=== PATIENT | female | born 1965 | race Two or more races ===

== ENCOUNTER 2023-01-19 22:58 | Emergency (ER) | payer MEDICAID, OTHER ==
[~2023-01-19] VITALS: Ht 172.7 cm; Wt 110.0 kg
[2023-01-19 22:58] VITALS: BP 131/86; RESP 18; O2SAT 95
[2023-01-19 23:32] VITALS: PULSE 64
== END 2023-01-20 03:27 | disposition left against medical advice (07) ==
LOC: EDBD 22:58 → ER 23:01
DX: M54.9 Dorsalgia, unspecified (principal); R94.31 Abnormal electrocardiogram [ECG] [EKG]; Z53.21 Procedure and treatment not carried out due to patient leaving prior to being seen by health care provider
CPT/HCPCS: 93005

== ENCOUNTER 2024-07-17 06:54 | Inpatient (IN) | payer MEDICAID ==
[2024-07-15 12:28] LABS: Basophils # (auto) 0 10 ^3/uL (0-0.2); Basophils % (auto) 0.7 % (0.0-2.0); Eosinophils # (auto) 0.2 10 ^3/uL (0-0.8); Eosinophils % (auto) 2.6 % (0.0-7.0); Hematocrit 42.1 % (36.0-46.0); Hemoglobin 13.9 g/dL (12.2-16.2); Lymphocytes # (auto) 3.2 10 ^3/uL (0.4-5.4); Mean Corpuscular Hemoglobin 29.6 pg (28.0-32.0); Mean Corpuscular Hgb Conc. 33.1 g/dL (32.0-36.0); Mean Corpuscular Volume 89.6 fL (80.0-100.0); Monocytes # (auto) 0.9 10 ^3/uL (0-1.3); Monocytes % (auto) 15.5 % (0.0-12.0); Neutrophils # (auto) 1.7 10 ^3/uL (1.6-8.6); Neutrophils % (auto) 28.2 % (37.0-80.0); Nucleated Red Blood Cells % 0.3 %; Platelet Count (auto) 295 10^3/uL (140-450); Red Blood Cells 4.69 10^6/uL (4.0-5.20); Red Cell Distribution Width 12.8 % (11.8-14.3); White Blood Cell 6.1 10^3/uL (4.4-10.8)
[2024-07-15 12:45] LABS: Alanine Aminotransferase 22 U/L (7-40); Albumin 4.7 g/dL (3.2-4.8); Alkaline Phosphatase 77 U/L (46-116); Anion Gap 12 (5-15); Aspartate Aminotransferase 20 U/L (13-40); BUN/Creatinine Ratio 10.7 (10.0-20.0); Bilirubin, Total 0.5 mg/dL (0.2-1.0); Blood Urea Nitrogen 19 mg/dL (9-23); Calcium 10.3 mg/dL (8.7-10.4); Carbon Dioxide 26 mmol/L (20-31); Chloride 101 mmol/L (98-107); Glucose 89 mg/dL (74-106); Sodium 139 mmol/L (136-145); Total Protein 7.6 g/dL (5.7-8.2)
[2024-07-15 12:47] LABS: INR 1.05 (0.9-1.15); Prothrombin Time 11.1 sec (9.3-11.8)
[2024-07-15 12:54] LABS: Potassium 3.4 mmol/L (3.5-5.1)
[~2024-07-17] VITALS: Ht 157.5 cm; Wt 109.6 kg
[~2024-07-17 06:54] MED LIST: AML5T PO; DULO60CA41 PO; GABA-1250 PO; HYDR-4798 PO; HYDR25TA4 PO; MELO7.5T7 PO; TIRZ7.5I2 SC
[2024-07-17] MEDS ORDERED: ceFAZolin 2 GM/D5W100ml 100 ML IV ONE (07:10)
--- NOTE | 2024-07-17 08:52 | DVH ---
CLINICAL INFORMATION: 59 years old, Female; preop. TECHNIQUE: Single AP portable chest radiograph was obtained. COMPARISON: None FINDINGS: Lungs: Mild atelectasis in the lung bases. No focal consolidation. Cardiac: Heart size is within normal limits. Pulmonary vasculature: Unremarkable. Mediastinum/chepe: Unremarkable. Bones: No acute osseous abnormality identified. Other: No other significant findings. IMPRESSION: No evidence of acute disease in the chest.
--- NOTE | 2024-07-17 09:06 | DVHINCON2 ---
JEFFY MARTIN [facility] 07/17/24 0906: Date Seen: Jul 17, 2024 Referring Physician MD Judy Reason for Consultation Cardiac risk stratification History of Present Illness This is a 59-year-old female patient who presents to the preoperative area for pending right Achilles detach and reattach with bone spur removal. Cardiology has been consulted at this point for cardiac risk stratification. Previous twelve lead electrocardiogram done on 07/15/24 reveals normal sinus rhythm with nonspecific ST depression to anterolateral leads. The patient denies any chest pain, shortness of breath, palpitations or other cardiac symptoms at time of assessment. Significant past medical history includes hypertension, plantar fasciitis, chronic back pain, previous tobacco use, and obesity. Past Medical History Past medical history reviewed. No other significant than mentioned above. Past Surgical History Tubal ligation Back surgery Family History Family history reviewed. Social History Patient has a five pack-year history, quit smoking approximately 17 years ago Patient denies any illicit drug use Patient denies any alcohol use Allergies: Coded Allergies: NO KNOWN ALLERGIES (Unverified , 07/15/24) Home Meds Reported Medications Tirzepatide (Zepbound) 7.5 Mg/0.5 Ml Inj, 7.5 MG SC, INJ 07/15/24 Amlodipine Besylate (NORVASC TABLET) 5 Mg Tb, 2.5 MG PO, TAB 07/15/24 Hydrochlorothiazide (Hydrochlorothiazide) 25 Mg Tab, 25 MG PO DAILY for 30 Days, MG 07/15/24 Duloxetine Hcl (Cymbalta) 60 Mg Cap, 1 CAP PO DAILY, #90 CAP 3 Refills 07/15/24 Hydrocodone-Acetaminophen (Hydrocodone Bitartrate/AC 10-325 mg) Unknown Strength Tab, PO, TAB 07/15/24 Gabapentin (Gabapentin) 300 Mg Cap, 300 MG PO PRN for 30 Days, MG 07/15/24 Meloxicam (Meloxicam) Unknown Strength Tab, PO DAILY, #30 TAB 2 Refills 07/15/24 Home Meds Home medications reviewed. Review of Systems Constitutional: No symptom reported Ears, Nose, & Throat: No symptom reported Eyes: No symptom reported Neurological: No symptoms reported Pulmonary/Respiratory: No symptoms reported Cardiovascular: No symptom reported Gastrointestinal: No symptom reported Genitourinary: No symptom reported Musculoskeletal: Right foot pain Skin: No symptom reported Psychiatric: No symptom reported Endocrine: No symptom reported Hematologic/Lymphatic: No symptom reported Vital Signs Vital Signs Date Time Temp Pulse Resp B/P (MAP) Pulse Ox O2 Delivery O2 Flow Rate FiO2 07/17/24 07:09 97.6 84 18 130/85 (100) 98 97.6 Physical Exam General Appearance: Cooperative. Obese Pulmonary/Respiratory: Clear, bilateral breaths sounds. Cardiovascular/Chest: Regular rate and rhythm. Peripheral Pulses: 2+ Radial (R). 2+ Radial (L). 2+ Pedal (R). 2+ Pedal (L) Abdominal Exam: Normal bowel sounds. Ankle Exam: Negative ankle edema Lower extremities: Negative lower extremity edema Neuro/Mental Status: A/OX4, coherent. Thoughts/Psych: Normal thought pattern. Appropriate mood and affect. Good judgme nt and insight. Appearance: No acute distress. Skin Exam: Normal inspection. Normal color. Warm and dry. Labs/Diagnostic Data Labs Test 07/15/24 11:57 Range/Units White Blood Count 6.1 4.4-10.8 10^3/uL Red Blood Count 4.69 4.0-5.20 10^6/uL Hemoglobin 13.9 12.2-16.2 g/dL Hematocrit 42.1 36.0-46.0 % Mean Corpuscular Volume 89.6 80.0-100.0 fL Mean Corpuscular Hemoglobin 29.6 28.0-32.0 pg Mean Corpuscular Hemoglobin Concent 33.1 32.0-36.0 g/dL Red Cell Distribution Width 12.8 11.8-14.3 % Platelet Count 295 140-450 10^3/uL Mean Platelet Volume 7.4 6.9-10.8 fL Neutrophils (%) (Auto) 28.2 L 37.0-80.0 % Lymphocytes (%) (Auto) 53.0 H 10.0-50.0 % Monocytes (%) (Auto) 15.5 H 0.0-12.0 % Eosinophils (%) (Auto) 2.6 0.0-7.0 % Basophils (%) (Auto) 0.7 0.0-2.0 % Neutrophils # (Auto) 1.7 1.6-8.6 10 ^3/uL Lymphocytes # (Auto) 3.2 0.4-5.4 10 ^3/uL Monocytes # (Auto) 0.9 0-1.3 10 ^3/uL Eosinophils # (Auto) 0.2 0-0.8 10 ^3/uL Basophils # (Auto) 0 0-0.2 10 ^3/uL Nucleated Red Blood Cells 0.3 % Prothrombin Time 11.1 9.3-11.8 sec Prothrombin Time INR 1.05 0.9-1.15 Activated Partial Thromboplast Time 27.0 24.5-34.5 SEC Sodium Level 139 136-145 mmol/L Potassium Level 3.4 L 3.5-5.1 mmol/L Chloride Level 101 98-107 mmol/L Carbon Dioxide Level 26 20-31 mmol/L Anion Gap 12 5-15 Blood Urea Nitrogen 19 9-23 mg/dL Creatinine 1.77 H 0.550-1.02 mg/dL Glomerular Filtration Rate Calc 33 >90 mL/min BUN/Creatinine Ratio 10.7 10.0-20.0 Serum Glucose 89 74-106 mg/dL Calcium Level 10.3 8.7-10.4 mg/dL Total Bilirubin 0.5 0.2-1.0 mg/dL Aspartate Amino Transferase (AST) 20 13-40 U/L Alanine Aminotransferase (ALT) 22 7-40 U/L Alkaline Phosphatase 77 46-116 U/L Total Protein 7.6 5.7-8.2 g/dL Albumin 4.7 3.2-4.8 g/dL Assessment Preprocedural cardiovascular examination Hypertension History of tobacco use Obesity Plan/Recommendation We will continue with the following plan/recommendations (Dr. Worrell): Case reviewed and discussed with . Cardiolite stress test images reviewed by . Transthoracic echocardiogram reveals EF 65%. Revised cardiac risk index (Britton criteria): 0 points (3.9% risk of major cardiac event). Chest x-ray reveals no evidence of acute disease in the chest. The patient underwent a Cardiolite stress test in which results were negative for ischemia. Cardiac symptoms have been ruled out. There is no underlying history of congestive heart failure, coronary artery disease, or equivalent of cardiac symptoms. The patient reports a good functional capacity. Per Cardiology standpoint, the patient is at an acceptable risk for moderate risk surgery. There is no additional cardiac workup indicated prior to surgery. Thank you for allowing us to care for this patient. Please call with any questions or concerns. Critical care time spent: 40 minutes This medical document was created using an electronic medical record system with voice recognition software and computerized dictation system. Although this document has been carefully reviewed, there might still be some phonetic and typographical errors. Occasional wrong-word or ``sound-alike substitutions may have occurred due to the inherent limitations of voice recognition software. These areas are purely typographical due to imperfections of the software programs and do not reflect any compromise in the patient's medical care. Please read the chart carefully and recognize, using context, where these substitutions have occurred. Plan discussed with: Patient NYHA Physical activity limitations: NA Date of Service: Jul 17, 2024 Billing Provider: JEFFY MARTIN Cardiology Common Codes: 65024-[id number] INP/OBS CARE (High) Cardiology Consultation Codes: 07530-[id number] CONSULT <45MIN MARY WORRELL MD 07/17/24 1548: Allergies: Coded Allergies: NO KNOWN ALLERGIES (Unverified , 07/15/24) Home Meds Reported Medications Tirzepatide (Zepbound) 7.5 Mg/0.5 Ml Inj, 7.5 MG SC, INJ 07/15/24 Amlodipine Besylate (NORVASC TABLET) 5 Mg Tb, 2.5 MG PO, TAB 07/15/24 Hydrochlorothiazide (Hydrochlorothiazide) 25 Mg Tab, 25 MG PO DAILY for 30 Days, MG 07/15/24 Duloxetine Hcl (Cymbalta) 60 Mg Cap, 1 CAP PO DAILY, #90 CAP 3 Refills 07/15/24 Hydrocodone-Acetaminophen (Hydrocodone Bitartrate/AC 10-325 mg) Unknown Strength Tab, PO, TAB 07/15/24 Gabapentin (Gabapentin) 300 Mg Cap, 300 MG PO PRN for 30 Days, MG 07/15/24 Meloxicam (Meloxicam) Unknown Strength Tab, PO DAILY, #30 TAB 2 Refills 07/15/24 Plan/Recommendation pt not seen, she was at stress labs pt was admitted for elective foot surgery echo is normal stress mpi shows eneida lvef 70%, normal perfusion pt acceptable intermediate risk for surgery ok to proceed Plan discussed with: Patient JEFFY MARTIN Jul 17, 2024 09:06 MARY WORRELL MD Jul 17, 2024 15:48
[2024-07-17] MEDS ORDERED: MORPHINE SULFATE INJ 2 MG/ml SYRG IV PRN (09:45)
[2024-07-17] MEDS ORDERED: NITROGLYCERIN 0.4 MG SL TAB SL PRN (09:45)
--- NOTE | 2024-07-17 10:07 | ECG ---
[facility] Test Date: 2024-07-17 Test Time: 08:32:37 Pat Name: WILL HARGROVE Department: Room: 0245T Gender: F [employer] Buyer: MARC : 1965 Requested By: JEFFY MARTIN Order Number: [id number] Reading MD: uHgo Paige Measurements Intervals [place] Rate: 62 P: 27 IN: 132 QRS: 4 QRSD: 86 T: 13 QT: 410 QTc: 416 Interpretive Statements Normal sinus rhythm Minimal voltage criteria for LVH, may be normal variant Nonspecific T wave abnormality Electronically Signed On 07-18-2024 21:09:05 PST by Hugo Paige Please click the below link to view image of tracing.
--- NOTE | 2024-07-17 10:07 | ECG ---
[facility] Test Date: 2024-07-17 Test Time: 08:33:12 Pat Name: WILL HARGROVE Department: Room: 0245T Gender: F [place] [employer] Operator: MARC : 1965 Requested By: RK SHORE Order Number: [id number] Reading MD: Hugo Paige Measurements Intervals [place] Rate: 63 P: 34 NE: 124 QRS: 3 QRSD: 80 T: 14 QT: 414 QTc: 423 Interpretive Statements Normal sinus rhythm Minimal voltage criteria for LVH, may be normal variant Nonspecific T wave abnormality Electronically Signed On 07-18-2024 21:09:43 PST by Hugo Paige Please click the below link to view image of tracing.
[2024-07-17] MEDS ORDERED: REGADENOSON 0.4 MG/5 ML SYRG IV ONE (10:50)
[2024-07-17] MEDS: REGADENOSON 0.4 MG/5 ML SYRG IV ONE (11:06)
--- NOTE | 2024-07-17 11:37 | DVHSR ---
APPROVED REPORT EXAM: Two-dimensional and M-mode echocardiogram with Doppler and color Doppler. RISK FACTORS Height: 5'2", Weight: 209 DIMENSIONS LVDd4.0 (3.8-5.7cm)LA (2D)4.4 (1.9-4.0cm)Aortic Root2.7 (2.0-3.7cm) LVDs2.5 (2.5-4.0cm)LA (MM) (1.9-4.0cm)Aortic Cusp Exc1.8 (1.5-2.0cm) EF (%) 69.0 (55-70%)Rt. Atrium3.9 (1.9-4.0cm)Asc. Aorta3.2 cm IVSd0.9 (0.7-1.1cm)RV (D)3.0 (1.8-2.4cm) PWd0.7 (0.7-1.1cm) Mitral Valve MitralMitral Stenosis E wave0.69m/sMV Mean GR.mmHg A wave0.71m/sMV Peak GR.mmHg E/A ratio1.02D MVAcm2 DECEL [id number] 1/2 Timems Aortic Valve Aortic ValveAortic Stenosis V11.23m/Ofelia Mean GR.4mmHg V21.45m/Ofelia Peak GR.8mmHg LVOT Diameter1.8 (1.8-2.4cm)Doppler AVA2.16cm2 Pulmonic Valve V20.63m/s Tricuspid Valve TR Velocity2.57m/s [id number] Other Information Quality : Technically LimitedRhythm : Technically limited study due to body habitus. Conclusion lvef 65% by visual estimate normal rv function mild enlargement enlarged left l atria no severe valve abnormalities noted trivial to small posterior pericardail effusion, no HD compromise
--- NOTE | 2024-07-17 11:42 | DVHHP2 ---
History of Present Illness Reason for Visit: Scheduled surgery History of Present Illness Carla Rasmussen is a 59-year-old female with past medical history of hypertension, obesity, bilateral plantar fasciitis, and chronic back pain, who came to the hospital for a scheduled surgery. Patient is scheduled with Dr. Kim for a Achilles detached and reattached with bone spur removal surgery today. On assessment by anesthesia they are requesting a cardiology clearance due to abnormal EKG. Patient will be admitted and worked up by cardiology prior to surgery. Patient denies any chest pain, palpitations, shortness of breath, dizziness, or syncopal episodes. Cardiovascular: HTN Musculoskeletal: Chronic low back pain Rheumatologic: Other (bilateral plantar fasciitis) Past Surgical History: Other (back surgery), Tubal Ligation Smoke: No ALCOHOL: none Drugs: None Lives: with Family Domestic Violence: Neg Review of Systems Constitutional: No: Fever, Chills, Sweats, Weakness, Malaise, Other Eyes: No: Pain, Vision change, Conjunctivae inflammation, Eyelid inflammation, Other, Redness ENT: No: Ear pain, Ear discharge, Nose pain, Nose discharge, Nose congestion, Mouth pain, Mouth swelling, Throat pain, Throat swelling, Other Respiratory: No: Cough, Dry, Shortness of breath, SOB with excertion, Wheezing, Hemoptysis, Pleuritic Pain, Sputum, Wheezing, Other Cardiovascular: No: Chest Pain, Palpitations, Orthopnea, Paroxysmal Noc. Dyspnea, Edema, Lt Headedness, Other Gastrointestinal: No: Nausea, Vomiting, Abdominal Pain, Diarrhea, Constipation, Melena, Hematochezia, Other Genitourinary: No Dysuria, No Frequency, No Incontinence, No Hematuria, No Retention, No Other Musculoskeletal: No: other, neck pain, shoulder pain, arm pain, back pain, hand pain, leg pain, foot pain Skin: No: Rash, Lesions, Jaundice, Bruising, Other Neurological: No: Weakness, Numbness, Incoordination, Change in speech, Confusion, Seizures, Other Allergies: Coded Allergies: Oxycodone (Verified Adverse Reaction, Unknown, HALLUCINATIONS, 07/17/24) Medications Current Medications Medications Dose Ordered Sig/Apryl Route Start Time Stop Time Status Last Admin Dose Admin Nitroglycerin 0.4 mg Q5MINP PRN SL 07/17/24 09:45 Morphine Sulfate 2 mg Q30M PRN IV 07/17/24 09:45 Exam Vital Signs Vital Signs Date Time Temp Pulse Resp B/P (MAP) Pulse Ox O2 Delivery O2 Flow Rate FiO2 07/17/24 07:09 97.6 84 18 130/85 (100) 98 97.6 General Appearance: Alert, Oriented X3, Cooperative, mild distress HEENT: Atraumatic, PERRLA Respiratory: Clear to auscultation, Normal air movement Cardiovascular: Regular rate, Normal S1, Normal S2, No murmurs Abdominal: Normal bowel sounds Extremities: No clubbing, No cyanosis, No edema, Normal pulses, Other (bilateral plantar fasciitis) Skin: No rashes, No breakdown, No significant lesion Neuro: Normal gait, Normal speech, Strength at 5/5 X4 ext Psych/Mental Status: Mental status NL, Mood NL Labs/Xrays Labs Test 07/15/24 11:57 Range/Units White Blood Count 6.1 4.4-10.8 10^3/uL Red Blood Count 4.69 4.0-5.20 10^6/uL Hemoglobin 13.9 12.2-16.2 g/dL Hematocrit 42.1 36.0-46.0 % Mean Corpuscular Volume 89.6 80.0-100.0 fL Mean Corpuscular Hemoglobin 29.6 28.0-32.0 pg Mean Corpuscular Hemoglobin Concent 33.1 32.0-36.0 g/dL Red Cell Distribution Width 12.8 11.8-14.3 % Platelet Count 295 140-450 10^3/uL Mean Platelet Volume 7.4 6.9-10.8 fL Neutrophils (%) (Auto) 28.2 L 37.0-80.0 % Lymphocytes (%) (Auto) 53.0 H 10.0-50.0 % Monocytes (%) (Auto) 15.5 H 0.0-12.0 % Eosinophils (%) (Auto) 2.6 0.0-7.0 % Basophils (%) (Auto) 0.7 0.0-2.0 % Neutrophils # (Auto) 1.7 1.6-8.6 10 ^3/uL Lymphocytes # (Auto) 3.2 0.4-5.4 10 ^3/uL Monocytes # (Auto) 0.9 0-1.3 10 ^3/uL Eosinophils # (Auto) 0.2 0-0.8 10 ^3/uL Basophils # (Auto) 0 0-0.2 10 ^3/uL Nucleated Red Blood Cells 0.3 % Prothrombin Time 11.1 9.3-11.8 sec Prothrombin Time INR 1.05 0.9-1.15 Activated Partial Thromboplast Time 27.0 24.5-34.5 SEC Sodium Level 139 136-145 mmol/L Potassium Level 3.4 L 3.5-5.1 mmol/L Chloride Level 101 98-107 mmol/L Carbon Dioxide Level 26 20-31 mmol/L Anion Gap 12 5-15 Blood Urea Nitrogen 19 9-23 mg/dL Creatinine 1.77 H 0.550-1.02 mg/dL Glomerular Filtration Rate Calc 33 >90 mL/min BUN/Creatinine Ratio 10.7 10.0-20.0 Serum Glucose 89 74-106 mg/dL Calcium Level 10.3 8.7-10.4 mg/dL Total Bilirubin 0.5 0.2-1.0 mg/dL Aspartate Amino Transferase (AST) 20 13-40 U/L Alanine Aminotransferase (ALT) 22 7-40 U/L Alkaline Phosphatase 77 46-116 U/L Total Protein 7.6 5.7-8.2 g/dL Albumin 4.7 3.2-4.8 g/dL Chest X-Ray FINDINGS: Lungs: Mild atelectasis in the lung bases. No focal consolidation. Cardiac: Heart size is within normal limits. Pulmonary vasculature: Unremarkable. Mediastinum/chepe: Unremarkable. Bones: No acute osseous abnormality identified. Other: No other significant findings. IMPRESSION: No evidence of acute disease in the chest. Assessment/Plan Assessment/Plan Assessment: Bilateral plantar fasciitis, Hypertension, Chronic back pain, Obesity, Plan: Admit to Tele, Cardiology consult, ECHO, Stress test, Blood work, Surgery, Home medications reconciled, Plan discussed with: Patient Date of Service: Jul 17, 2024 Billing Provider: IMAN SALAZAR Common Visit Codes: [id number] INP/OBS CARE (MOD) IMAN SALAZAR Jul 17, 2024 11:42
--- NOTE | 2024-07-17 13:05 | DVHSR ---
APPROVED REPORT Exam: Nuclear Stress Test BMI: 0 Stress Test Details HR Max Heart Rate (APMHR): 161.466130 bpm Target HR (85% APMHR): 136.824405 bpm BP ECG Stress ECG Conclusion lvef 7% normal perfusion scan normal spect imaging NM EXAM: Myocardial Perfusion REST/STRESS Imaging Protocol: Rest Tc-99m/Stress Tc-99m 1 day Resting Data Rest SPECT myocardial perfusion imaging was performed in supine position 60 minutes following the int ravenous injection of 11.1 mCi of Tc-99m Sestamibi. Time of rest injection: 1014 Time of rest imagin Administration Route: IV Administration Site: Left Hand Pharmacologic Stress Pharmacologic stress test was performed by injecting Regadenoson 0.4 mg IV push followed by the intra venous injection of 33.5 mCi of Tc-99m Sestamibi. Time of stress injection: 1106 Time of stress imagin Administration Route: IV Administration Site: Left Hand Gated Stress SPECT was performed 60 minutes after stress injection. The images were gated to evaluate regional wall motion and calculate left ventricular ejection fracti on. Stress only was performed in the Supine position. Nuclear Conclusion Nuclear Findings: negative for ischemia lvef 7% normal perfusion scan normal spect imaging
[2024-07-17] MEDS ORDERED: BUPIVACAINE HCL 50 ML ONE (13:32)
[2024-07-17] MEDS ORDERED: BUPIVACAINE 0.25% INJ 50ML VIAL ONE (13:32)
[2024-07-17] MEDS ORDERED: PROPOFOL 10 MG/ML 20 ML IV ONE (13:36)
[2024-07-17] MEDS ORDERED: GLYCOPYRROLATE 0.2 MG/ML 1ML VIAL ONE (13:36)
[2024-07-17] MEDS ORDERED: ROCURONIUM 10MG/ML 10ML VIAL IV ONE (13:36)
[2024-07-17] MEDS ORDERED: KETAMINE 50mg/ML 1ml syringe ONE (13:38)
[2024-07-17] MEDS ORDERED: LIDOCAINE 2% (LOCAL ANESTH.) PF 5ml SDV ONE (13:38)
[2024-07-17] MEDS ORDERED: ONDANSETRON HCL 4 MG/2 ML VIAL ONE (13:38)
[2024-07-17] MEDS ORDERED: fentaNYL CITRATE 100 MCG/2 ML VL ONE (13:38)
[2024-07-17] MEDS ORDERED: KETOROLAC TROMETH 30 MG/ML 1ML VIAL ONE (13:38)
[2024-07-17] MEDS ORDERED: DexAMETHasone SOD PHOS 10MG/1ML VIAL INJ ONE (13:38)
[2024-07-17] MEDS ORDERED: SUGAMMADEX 200mg/2ml Vial (100MG/ML) IV ONE (13:40)
[2024-07-17] MEDS ORDERED: BUPIVACAINE 0.5% P/F INJ 10 ML VIAL ONE (13:48)
[2024-07-17] MEDS ORDERED: HYDROmorphone HCL 2 MG/ML VL/or syr ONE (14:33)
[2024-07-17] MEDS ORDERED: MIDAZOLAM HCL 2MG/2ML 2ml VIAL (1mg/ml) ONE (14:33)
--- NOTE | 2024-07-17 15:03 | DVHOP2 ---
Operative Report - 2 Report Details Date: 07/17/24 Preop Diagnosis: 1. Right insertional calcific achilles tendonitis 2. Right haglunds deformity 3. Right foot pain Postop Diagnosis: Insertional calcific Achilles tendinitis Surgeon: Rk Shore MD Anesthesiologist: See anesthesia Anesthesia: General Implant: Arthrex speed bridge Consent: The patient was informed of the risks and benefits of the procedure. These include but are not limited to complications of anesthesia, postoperative infection, incomplete relief of symptoms, recurrence of symptoms, damage to blood vessels, nerves and tendons, deep venous thrombosis, pulmonary embolism and possible need for repeat surgery in the future. Complications: None Estimated Blood Loss: Minimal Fluids: See anesthesia Findings: Consistent with diagnosis Indications for Surgery: Worsening right foot pain Name of Procedure Performed 1. Right achilles tendon debridement (45426) 2. Right calcaneal removal of bone spur and haglunds deformity (35114) Procedure Details Procedure Details: PRE-PROCEDURE INFORMATION: In the pre-op holding area, the extremity to be operated on was clearly marked and the patient verified correct laterality of the marking. The patient was transferred to the OR table and placed in a prone position. A timeout was performed in which identification of the correct patient, procedure, location, and materials was done. The right foot and leg were prepped and draped in normal sterile fashion. The foot and leg were exsanguinated and the thigh tourniquet was inflated to 300 mmHg. DESCRIPTION OF PROCEDURE: Attention was directed to the right posterior heel where a curvilinear incision was made over the posterior heel. Care was taken throughout dissection to avoid damage to neurovascular or tendinous structures. This incision was designed in a manner that, as the incision was deepened to the level of the Achilles, there were 2 flaps that were able to be opened and sutured down so as to be able to gain excellent exposure to the Achilles tendon. The peritenon was incised to be able to reveal the tendon, which appeared to have microtearing and fibrosis. All devitalized tissue and fibrosis was debrided off of the Achilles tendon. The Achilles was then detached from the posterior heel where the large exostosis was identified. Utilizing osteotomes, bone rasps, and other instrumentation, the exostosis of the posterior calcaneus was adequately resected. The area was smoothed down with bone rasps and revealed a normal posterior calcaneus after resection of the exostosis. Next, the Achilles tendon was reattached to the posterior calcaneus using the Arthrex SpeedBridge set consisting of bone anchors and the suture material. After the SpeedBridge set was used, the Achilles appeared to be well reattached to the posterior calcaneus and there appeared to be no immediate complications from that reattachment. All surgical wounds were irrigated copiously with saline and closed in layers with the aforementioned suture material. A dry sterile dressing was placed on the surgical extremity. The patient was placed in a boot. POSTOPERATIVE INFORMATION: The patient tolerated the above noted procedure and anesthesia well and was transferred to the PACU with vital signs stable, and vascular status intact with capillary refill intact to all digits. Postoperative instructions reviewed in detail with the patient with written instructions provided. Patient will return to clinic in approximately 10-14 days for first postoperative visit. Patient has the number of the clinic and was instructed to call prior to that time should any problems, questions, or concerns arise. Condition Good Disposition Home RK SHORE DPM Jul 17, 2024 15:03
[2024-07-17 15:12] VITALS: PULSE 95; RESP 12; O2SAT 95
[2024-07-17] MEDS: GABAPENTIN 300 MG CAP PO ONE (16:03)
[2024-07-17] MEDS: ACETAMINOPHEN IV 1000 MG/100ML (10MG/ML) IV ONE (16:03)
[2024-07-17] MEDS: CELECOXIB 100 MG CAP PO ONE (16:03)
[2024-07-17] MEDS: HYDROmorphone HCL 2 MG/ML VL/or syr IV PRN (16:27)
[2024-07-17 17:30] VITALS: PULSE 67; RESP 18; O2SAT 96
[2024-07-17 17:58] VITALS: BP 122/71; PULSE 67; RESP 18; TEMP 97.5; O2SAT 96
[2024-07-17 20:00] VITALS: PULSE 81; PULSE 97; RESP 20; O2SAT 95
[2024-07-17 21:00] VITALS: BP 129/72; PULSE 81; RESP 20; TEMP 97.4; O2SAT 95
[2024-07-17] MEDS: HYDROcodone-ACET 5/325MG TAB PO PRN (22:29)
[2024-07-18] VITALS (8 sets, daily range): BP systolic 108–130; BP diastolic 61–78; PULSE 70–90; RESP 16–19; TEMP 97.7–98.2; O2SAT 92–100
[2024-07-18] MEDS: amLODIPine BESYLATE 5 MG TAB PO SCH (10:00)
[2024-07-18] MEDS: DULoxetine HCL 30 MG CAP PO SCH (10:00)
--- NOTE | 2024-07-18 10:36 | DVHPN2 ---
Subjective 59-year-old female with a history of hypertension, obesity, plantar fasciitis, chronic low back pain was admitted to the hospital to have her foot surgery by Podiatry for the Achilles tendon reattachment and bone spur Before surgery she was seen by Cardiology and she was cleared for surgery by doing an echocardiogram and a Cardiolite stress test which were normal and therefore surgery was done She complains of fatigue and heartburn Changes from previous H/P or p: Changes Eyes: No Pain, No Vision change, No Conjunctivae inflammation, No Eyelid inflammation, No Other, No Redness ENT: No Ear pain, No Ear discharge, No Nose pain, No Nose discharge, No Nose congestion, No Mouth pain, No Mouth swelling, No Throat pain, No Throat swelling, No Other Cardiovascular: No Chest Pain, No Palpitations, No Orthopnea, No Paroxysmal Noc. Dyspnea, No Edema, No Lt Headedness, No Other Respiratory: No Cough, No Dry, No Shortness of breath, No SOB with excertion, No Wheezing, No Hemoptysis, No Pleuritic Pain, No Sputum, No Other Gastrointestinal: No Nausea, No Vomiting, No Abdominal Pain, No Diarrhea, No Constipation, No Melena, No Hematochezia, No Other Genitourinary: No Dysuria, No Frequency, No Incontinence, No Hematuria, No Retention, No Other Musculoskeletal: No other, No neck pain, No shoulder pain, No arm pain, No back pain, No hand pain, No leg pain, No foot pain Skin: No Rash, No Lesions, No Jaundice, No Bruising, No Other Objective Vitals Vital Signs Date Time Temp Pulse Resp B/P (MAP) Pulse Ox O2 Delivery O2 Flow Rate FiO2 07/18/24 05:00 98.1 90 18 116/72 (87) 95 98.1 07/17/24 20:00 Room Air* 0 21 Intake/Output Intake and Output 07/18/24 07:00 Intake Total 2800 ml Balance 2800 ml Intake Oral 2700 ml IV Total 100 ml # Voids 3 General Appearance: Alert, Oriented X3 Lungs: Clear to auscultation, Normal air movement Cardiovascular: Regular rate, Normal S1, Normal S2, Other (Systolic murmur at the base) Abdomen: Normal bowel sounds, Soft, No tenderness Extremities: No edema Medications Current Medications Medications Dose Ordered Sig/Apryl Route Start Time Stop Time Status Last Admin Dose Admin Nitroglycerin 0.4 mg Q5MINP PRN SL 07/17/24 09:45 Morphine Sulfate 2 mg Q30M PRN IV 07/17/24 09:45 Amlodipine Besylate 2.5 mg DAILY PO 07/18/24 10:00 Hydrochlorothiazide 25 mg DAILY PO 07/18/24 10:00 Duloxetine HCl 60 mg DAILY PO 07/18/24 10:00 Acetaminophen/ Hydrocodone Bitart 1 tab Q4HPRN PRN PO 07/17/24 16:30 07/18/24 02:32 1 TAB Laboratory Results Laboratory Tests 07/15/24 11:57 Assessment/Plan Assessment/Plan Hypertension Fatigue Right foot Achilles tendon debridement and removal of calcaneal bone spur Obesity Plantar fasciitis Chronic low back pain Plan Check the TSH and folic acid and B12 Order wheelchair and home health Physical therapy Pain management Belva p.r.n. Chlorothiazide 25 mg daily Amlodipine 2.5 mg daily Protonix 40 mg daily Mylanta as needed for heartburn Monitor closely The rest of the management will depend on the hospital course Plan discussed with: Patient, Spouse Date of Service: Jul 18, 2024 Billing Provider: JOE ALVARADO MD Common Visit Codes: [id number] INP/OBS CARE(HIGH) JOE ALVARADO MD Jul 18, 2024 10:35
[2024-07-18] MEDS: MAALOX PLUS or MAALOX 30 ML PO PRN (10:58)
[2024-07-18] MEDS: hydroCHLOROthiazide 25 MG TAB PO SCH (11:29)
[2024-07-18] MEDS: PANTOPRAZOLE 40 MG TAB PO ONE (11:31)
[2024-07-18] MEDS: DOCUSATE SOD 100 MG CAP PO ONE (14:03)
[2024-07-18 14:24] LABS: Folate (Folic Acid) 17.84 ng/mL (>5.38)
[2024-07-18 15:30] LABS: Potassium 3.6 mmol/L (3.5-5.1)
[2024-07-18 15:31] LABS: Anion Gap 8 (5-15); Carbon Dioxide 30 mmol/L (20-31)
[2024-07-18 15:32] LABS: Calcium 9.3 mg/dL (8.7-10.4)
[2024-07-18 15:37] LABS: BUN/Creatinine Ratio 16.3 (10.0-20.0); Blood Urea Nitrogen 17 mg/dL (9-23)
[2024-07-18 15:41] LABS: Chloride 95 mmol/L (98-107); Glucose 119 mg/dL (74-106); Magnesium 1.3 mg/dL (1.6-2.6); Sodium 133 mmol/L (136-145)
[2024-07-18] MEDS: MAGNESIUM SULFATE 1GM/100ML 100 ML IV SCH (17:01)
[2024-07-18] MEDS: MORPHINE SULFATE INJ 2 MG/ml SYRG IV PRN (17:01)
[2024-07-18] MEDS: POTASSIUM CHL 20 Meq TABLET PO ONE (17:02)
[2024-07-18] MEDS: SODIUM CHLORIDE 0.9% 1,000 ML IV SCH (17:02)
[2024-07-18] MEDS: DOCUSATE SOD 100 MG CAP PO SCH (21:59)
[2024-07-19 05:00] VITALS: BP 115/66; PULSE 77; RESP 18; TEMP 97.8; O2SAT 99
[2024-07-19] MEDS: PANTOPRAZOLE 40 MG TAB PO SCH (05:45)
[2024-07-19 07:02] LABS: Basophils # (auto) 0 10 ^3/uL (0-0.2); Basophils % (auto) 0.2 % (0.0-2.0); Eosinophils # (auto) 0 10 ^3/uL (0-0.8); Eosinophils % (auto) 0.4 % (0.0-7.0); Hematocrit 35.9 % (36.0-46.0); Lymphocytes # (auto) 3.1 10 ^3/uL (0.4-5.4); Lymphocytes % (auto) 36.4 % (10.0-50.0); Mean Corpuscular Hemoglobin 29.8 pg (28.0-32.0); Mean Corpuscular Hgb Conc. 33.3 g/dL (32.0-36.0); Mean Corpuscular Volume 89.5 fL (80.0-100.0); Monocytes # (auto) 0.9 10 ^3/uL (0-1.3); Neutrophils # (auto) 4.5 10 ^3/uL (1.6-8.6); Nucleated Red Blood Cells % 0.3 %; Platelet Count (auto) 237 10^3/uL (140-450); Red Blood Cells 4.01 10^6/uL (4.0-5.20); White Blood Cell 8.6 10^3/uL (4.4-10.8)
[2024-07-19 07:19] LABS: Alanine Aminotransferase 16 U/L (7-40); Alkaline Phosphatase 60 U/L (46-116); Anion Gap 8 (5-15); BUN/Creatinine Ratio 15.5 (10.0-20.0); Blood Urea Nitrogen 15 mg/dL (9-23); Calcium 8.9 mg/dL (8.7-10.4); Carbon Dioxide 26 mmol/L (20-31); Chloride 99 mmol/L (98-107); Glucose 99 mg/dL (74-106); LDL Cholesterol 72 mg/dL (< 100); Potassium 3.7 mmol/L (3.5-5.1); Triglycerides 69 mg/dL (< 150)
[2024-07-19 07:20] LABS: Albumin 3.8 g/dL (3.2-4.8); Aspartate Aminotransferase 20 U/L (13-40); Cholesterol 137 mg/dL (< 200); HDL Cholesterol 46 mg/dL (40-59); Sodium 133 mmol/L (136-145)
[2024-07-19 07:21] LABS: Bilirubin, Total 0.6 mg/dL (0.2-1.0); Total Protein 6.1 g/dL (5.7-8.2)
[2024-07-19 07:30] LABS: Free T3 3.02 pg/mL (2.3-4.2); Free T4 (Free Thyroxine) 1.38 ng/dL (0.89-1.76)
[2024-07-19 08:00] VITALS: PULSE 74; PULSE 77; RESP 15; O2SAT 94
[2024-07-19 09:00] VITALS: BP 103/54; PULSE 77; RESP 15; TEMP 98.3; O2SAT 94
[2024-07-19] MEDS: DULoxetine HCL 30 MG CAP PO SCH (09:19)
[2024-07-19] MEDS: amLODIPine BESYLATE 5 MG TAB PO SCH (09:20)
[2024-07-19] MEDS ORDERED: DOXY1CAP57 PO (12:27)
[2024-07-19] MEDS ORDERED: DOCU-94 PO (12:29)
--- NOTE | 2024-07-19 12:29 | DVHDS2 ---
Discharge Summary Date of Admission Jul 17, 2024 at 09:43 Date of Discharge: Jul 19, 2024 Labs/Diagnostic Data: Laboratory Results Test 07/19/24 06:01 07/18/24 13:24 07/15/24 11:57 White Blood Count 8.6 10^3/uL (4.4-10.8) Red Blood Count 4.01 10^6/uL (4.0-5.20) Hemoglobin 12.0 g/dL (12.2-16.2) Hematocrit 35.9 % (36.0-46.0) Mean Corpuscular Volume 89.5 fL (80.0-100.0) Mean Corpuscular Hemoglobin 29.8 pg (28.0-32.0) Mean Corpuscular Hemoglobin Concent 33.3 g/dL (32.0-36.0) Red Cell Distribution Width 13.0 % (11.8-14.3) Platelet Count 237 10^3/uL (140-450) Mean Platelet Volume 7.6 fL (6.9-10.8) Neutrophils (%) (Auto) 53.0 % (37.0-80.0) Lymphocytes (%) (Auto) 36.4 % (10.0-50.0) Monocytes (%) (Auto) 10.0 % (0.0-12.0) Eosinophils (%) (Auto) 0.4 % (0.0-7.0) Basophils (%) (Auto) 0.2 % (0.0-2.0) Neutrophils # (Auto) 4.5 10 ^3/uL (1.6-8.6) Lymphocytes # (Auto) 3.1 10 ^3/uL (0.4-5.4) Monocytes # (Auto) 0.9 10 ^3/uL (0-1.3) Eosinophils # (Auto) 0 10 ^3/uL (0-0.8) Basophils # (Auto) 0 10 ^3/uL (0-0.2) Nucleated Red Blood Cells 0.3 % Sodium Level 133 mmol/L (136-145) Potassium Level 3.7 mmol/L (3.5-5.1) Chloride Level 99 mmol/L (98-107) Carbon Dioxide Level 26 mmol/L (20-31) Anion Gap 8 (5-15) Blood Urea Nitrogen 15 mg/dL (9-23) Creatinine 0.97 mg/dL (0.550-1.02) Glomerular Filtration Rate Calc 67 mL/min (>90) BUN/Creatinine Ratio 15.5 (10.0-20.0) Serum Glucose 99 mg/dL (74-106) Calcium Level 8.9 mg/dL (8.7-10.4) Magnesium Level 2.0 mg/dL (1.6-2.6) Total Bilirubin 0.6 mg/dL (0.2-1.0) Aspartate Amino Transferase (AST) 20 U/L (13-40) Alanine Aminotransferase (ALT) 16 U/L (7-40) Alkaline Phosphatase 60 U/L (46-116) Total Protein 6.1 g/dL (5.7-8.2) Albumin 3.8 g/dL (3.2-4.8) Triglycerides Level 69 mg/dL (< 150) Cholesterol Level 137 mg/dL (< 200) LDL Cholesterol 72 mg/dL (< 100) HDL Cholesterol 46 mg/dL (40-59) Thyroid Stimulating Hormone (TSH) 0.52 uIU/mL (0.55-4.78) Free Thyroxine (T4) Calculated 1.38 ng/dL (0.89-1.76) Free Triiodothyronine (T3) pg/mL 3.02 pg/mL (2.3-4.2) Vitamin B12 Level 3710 pg/mL (211-911) Folic Acid 17.84 ng/mL (>5.38) Prothrombin Time 11.1 sec (9.3-11.8) Prothrombin Time INR 1.05 (0.9-1.15) Activated Partial Thromboplast Time 27.0 SEC (24.5-34.5) Other Laboratory Tests 07/19/24 06:01 Brief Hx & Hospital Course: Final diagnoses: Hypertension Fatigue Right foot Achilles tendon debridement and removal of calcaneal bone spur Obesity Plantar fasciitis Chronic low back pain Condition at Discharge: Good Final Diagnosis/Problems List Hypertension Fatigue Right foot Achilles tendon debridement and removal of calcaneal bone spur Obesity Plantar fasciitis Chronic low back pain Discharge Disposition: Home SNF Discharge Will this Physician continue t: No Discharge Instruct/Medications Diet: Cardiac 2g Na,low cholest Activity: See Comment Activity comment: RLE Non weightbearing in boot Follow Up/Referral: Dr. Kim Two weeks Medications: Doxycycline 100 mg Oxycodone 5 mg Aspirin 81 mg Discharge Statement: "Patient was advised to return to the ER or call 911 if any headaches, dizziness, shortness of breath, chest pain, abdominal pain, bleeding, fevers, or worsening of medical condition. Patient was counseled about treatment plan, medications, possible side effects, patientverbalized understanding. All questions were answered to the best of my ability. This discharge took greater then 30 minutes in planning, reviewing documentation, counseling the patient, and discussing with other team members." ASSESSMENT ASSESSMENT Assessment Hypertension Fatigue Right foot Achilles tendon debridement and removal of calcaneal bone spur Obesity Plantar fasciitis Chronic low back pain Date of Service: Jul 19, 2024 Billing Provider: JOE ALVARADO MD Common Visit Codes: 07962-PHE/OBS DISCH DAY >30min JOE ALVARADO MD Jul 19, 2024 12:29
[2024-07-19] MEDS ORDERED: TRAM-626 PO (12:41)
[2024-07-19] MEDS: LACTULOSE 20Gm/30ML SOLN PO ONE ×2 (12:54→16:17)
[2024-07-19 13:00] VITALS: BP 100/78; PULSE 73; RESP 15; TEMP 97.9; O2SAT 95
[2024-07-19 13:46] VITALS: BP 103/54; PULSE 77; RESP 15; TEMP 98.3; O2SAT 94
--- NOTE | 2024-07-19 13:50 | ECG ---
[facility] Test Date: 2024-07-18 Test Time: 13:28:52 Pat Name: WILL HARGROVE Department: Respiratoy Room: 0245T A Gender: F Client Support Professional: SANDI : 1965 Requested By: JOE ALVARADO Order Number: [id number] Reading MD: Hugo Paige Measurements Intervals [place] Rate: 83 P: 2 CT: 131 QRS: 12 QRSD: 68 T: 0 QT: 464 QTc: 546 Interpretive Statements Sinus rhythm LAE, consider biatrial enlargement Abnrm T, consider ischemia, anterolateral lds Prolonged QT interval Baseline wander in lead(s) V6 Partial missing lead(s): V6 Electronically Signed On 07-23-2024 21:23:43 PST by Hugo Paige Please click the below link to view image of tracing.
[2024-07-19 17:00] VITALS: BP 100/58; PULSE 75; RESP 16; TEMP 98; O2SAT 97
== END 2024-07-19 17:34 | disposition home health service (06) | DRG 314 ==
LOC: SUR 06:54 → OVERFLOW 09:43 → TELE-EAST 17:36
PROVIDERS: ADMIT Internal Medicine Geriatric Medicine; ATTEND Internal Medicine Geriatric Medicine
PROC: 0QBL0ZZ Excision of Right Tarsal, Open Approach (ICD-10-PCS; principal; 2024-07-17 14:01)
DX: M76.61 Achilles tendinitis, right leg (principal); N17.0 Acute kidney failure with tubular necrosis; E66.9 Obesity, unspecified; G89.29 Other chronic pain; M72.2 Plantar fascial fibromatosis; M77.31 Calcaneal spur, right foot; I10 Essential (primary) hypertension; Z68.41 Body mass index [BMI] 40.0-44.9, adult; Z87.891 Personal history of nicotine dependence; Z79.899 Other long term (current) drug therapy
CPT/HCPCS: 36415; 71045; 78452; 80048; 80053; 80061; 82607; 82746; 83735; 84439; 84443; 84481; 85025; 85610; 85730; 93005; 93017; 93306; 97163; G0378; J1100; J1885; J2003; J2250; J2405; J2704; J3490